=== PATIENT | male | born 1955 ===

== ENCOUNTER 2025-04-27 06:15 | Day surgery (SDC) | payer MEDICARE ==
[2025-04-27] MEDS ORDERED: CYCL10 PO (06:55)
[2025-04-27] MEDS ORDERED: DOXA4 PO (06:55)
[2025-04-27] MEDS ORDERED: LOSARTAN-HCTZ1 EACH PO (06:56)
[2025-04-27] MEDS ORDERED: Crestor40 MG PO (06:56)
[2025-04-27] MEDS ORDERED: TRAZ100 PO (06:56)
== END 2025-04-27 23:00 | disposition home or self-care (01) ==
LOC: CT 06:15
DX: N28.89 Other specified disorders of kidney and ureter (principal); N40.0 Benign prostatic hyperplasia without lower urinary tract symptoms; D49.511 Neoplasm of unspecified behavior of right kidney; H91.90 Unspecified hearing loss, unspecified ear
CPT/HCPCS: 77013; J2250; J2310; J2371; J3010; J7030; Q9967

== ENCOUNTER 2025-04-27 06:39 | Day surgery (SDC) | payer MEDICARE ==
[~2025-04-27] VITALS: Ht 188 cm; Wt 113.0 kg
[2025-04-27] MEDS ORDERED: NS 1,000 ML IV ONE ×2 (06:49→07:20)
[2025-04-27] MEDS ORDERED: CYCL10 PO (06:55)
[2025-04-27] MEDS ORDERED: DOXA4 PO (06:55)
[2025-04-27] MEDS ORDERED: Crestor40 MG PO (06:56)
[2025-04-27] MEDS ORDERED: LOSARTAN-HCTZ1 EACH PO (06:56)
[2025-04-27] MEDS ORDERED: TRAZ100 PO (06:56)
[2025-04-27 07:00] VITALS: BP 127/91
[2025-04-27] MEDS ORDERED: FentaNYL Citrate 50 MCG/ML 2 ML Injection ONE (07:20)
[2025-04-27] MEDS ORDERED: Phenylephrine HCl 100 MCG/ML-NS 10MLSYR (1MG/10ML) ONE (07:20)
[2025-04-27] MEDS ORDERED: Midazolam HCl 1MG / ML 2ML Vial ONE (07:20)
[2025-04-27] MEDS ORDERED: Flumazenil 0.1 MG / ML 5ML Vial ONE (07:22)
[2025-04-27] MEDS ORDERED: Naloxone HCl 0.4MG / ML 1ML Vial ONE (07:22)
[2025-04-27 09:45] VITALS: BP 134/92
[2025-04-27 10:00] VITALS: BP 166/102
--- NOTE | 2025-04-27 10:02 | NUR ---
PT RETURNED TO RECOVERY ROOM IN BED. RIGHT FLANK SITE SOFT WITH NO HEMATOMA, SLIGHT TRACK OOZING AND INTACT TEGADERM. PT'S SISTER IN ROOM. PT EATING BREAKFAST. CALL LIGHT IN REACH.
--- NOTE | 2025-04-27 10:14 | NUR ---
NO CHANGES TO R FLANK SIGHT.
[2025-04-27 10:17] VITALS: BP 153/102
[2025-04-27 10:30] VITALS: BP 155/83
--- NOTE | 2025-04-27 10:48 | NUR ---
NO CHANGES TO R FLANK SITE. DISCHARGE INSTRUCTIONS REVIEWED ALL QUESTIONS ANSWERED. 18 G IV DISCONTINUED FROM LEFT WRIST WITH INTACT CANNULA. PT ESCORTED OUT VIA WHEELCHAIR ESCORT.
== END 2025-04-27 11:32 | disposition home or self-care (01) ==
LOC: MHTC 06:39
DX: D49.511 Neoplasm of unspecified behavior of right kidney (principal); N40.0 Benign prostatic hyperplasia without lower urinary tract symptoms; H91.90 Unspecified hearing loss, unspecified ear
CPT/HCPCS: 50593; 77013; 99152; 99153; C2618; J2250; J2310; J2371; J3010; J7030; Q9967